=== PATIENT | male | born 1940 | race Caucasian/White ===

== ENCOUNTER 2016-05-03 09:02 | Day surgery (SDC) | payer MEDICARE ==
[~2016-05-03] VITALS: Ht 172.7 cm; Wt 47.9 kg
[~2016-05-03 09:02] MED LIST: ATOR1TAB18 PO; CLOP75TA PO; NITR1SUB2 SL; TEMA30CA PO
[2016-05-03] MEDS ORDERED: SODIUM CHLORID 0.9% 500 ML IV SCH (09:45)
[2016-05-03] MEDS ORDERED: VANCOMYCIN HCL 1000 MG ON-CALL/NS 250 ML IV SCH ×2 (09:45)
[2016-05-03] MEDS ORDERED: LACTATED RINGER'S 1000 ML IV SCH (09:45)
[2016-05-03] MEDS ORDERED: INSULIN HUMAN REGULAR 1,000 UNITS/10 ML VIAL SQ PRN (09:45)
[2016-05-03] MEDS ORDERED: METOPROLOL TARTRATE 25 MG TAB PO PRN (09:45)
[2016-05-03 09:58] VITALS: BP 146/87; PULSE 66; RESP 16; TEMP 97.5; O2SAT 99
[2016-05-03 09:58] LABS: AUTOMATED NEUTROPHIL # 4.6 TH/MM3 (1.8-7.7); BASOPHIL # 0.1 TH/MM3 (0-0.2); BASOPHIL % 0.9 % (0.0-2.0); EOSINOPHIL # 0.2 TH/MM3 (0-0.4); EOSINOPHIL % 2.5 % (0.0-4.0); HEMATOCRIT 43.1 % (39.0-51.0); HEMO FLAGS DIFF FINAL; LYMPH % 32.1 % (9.0-44.0); LYMPHOCYTE # 2.7 TH/MM3 (1.0-4.8); MEAN CELL VOLUME 104.8 FL (80.0-100.0); MEAN CORPUSCULAR HEMOGLOBIN 35.2 PG (27.0-34.0); MEAN CORPUSCULAR HGB CONC 33.6 % (32.0-36.0); NEUT % 55.5 % (16.0-70.0); PLATELET COUNT 205 TH/MM3 (150-450); RED BLOOD COUNT 4.12 MIL/MM3 (4.50-5.90); RED CELL DISTRIBUTION WIDTH 13.7 % (11.6-17.2); WHITE BLOOD COUNT 8.3 TH/MM3 (4.0-11.0)
[2016-05-03 10:08] LABS: APTT (PATIENT) 29.3 SEC (24.3-30.1); INTERNATIONAL NORMALIZED RATIO 1.1 RATIO; PROTHROMBIN TIME - PATIENT 12.4 SEC (9.8-11.6)
[2016-05-03 10:15] LABS: POTASSIUM 4.1 MEQ/L (3.5-5.1)
[2016-05-03] MEDS ORDERED: MIDAZOLAM HCL 2 MG/2 ML VIAL ONE (11:43)
[2016-05-03] MEDS ORDERED: DEXAMETHASONE SOD PHOS 4 MG/ML VIAL ONE (11:44)
[2016-05-03] MEDS ORDERED: FAMOTIDINE 20 MG/2 ML VIAL ONE (11:44)
[2016-05-03] MEDS ORDERED: diphenhydrAMINE HCL 50 MG/ML VIAL ONE (11:44)
[2016-05-03] MEDS ORDERED: LACTATED RINGER'S 1000 ML INJ 1,000 ML IV ONE (12:00)
[2016-05-03] MEDS ORDERED: IOHEXOL 300 MG/ML 50 ML BTL (for RAD DIAG) ONE (12:00)
[2016-05-03] MEDS ORDERED: PROPOFOL 200 MG/20 ML AMP IV ONE (12:00)
[2016-05-03] MEDS ORDERED: HEPARIN SODIUM - SQ 10,000 UNITS/ML VIAL ONE (13:58)
[2016-05-03] MEDS ORDERED: HEPARIN SODIUM - IV 10,000 UNITS/10 ML VIAL ONE (13:58)
[2016-05-03] MEDS ORDERED: PROTAMINE SULFATE 50 MG/5 ML VIAL ONE (13:58)
--- NOTE | 2016-05-03 15:02 | EKG ---
Date Performed: 05/03/2016 Time Performed: 09:53:13 PTAGE: 75 years EKG: Sinus rhythm J-POINT ELEVATION ST ELEVATION DIFFUSELY, CONSISTENT WITH REPOLARIZATION ABNORMALITY OR PERICARDITIS , INJURY PATTERN MOST LIKELY CLINICAL CORRELATION RECOMMENDED BORDERLINE ECG PREVIOUS TRACING : 12/16/2014 10.26 DOCTOR: Pratik Hale Interpretating Date/Time 05/03/2016 15:01:53
[2016-05-03] MEDS ORDERED: BUPIVACAINE/EPINEPHRINE 0.5% PF 30 ML VIAL INFIL ONE (15:18)
[2016-05-03] MEDS ORDERED: IOHEXOL 350 MG/ML 50 ML BTL (for RAD DIAG) OTHER ONE (15:18)
[2016-05-03] MEDS ORDERED: DO NOT ADM ANY ANTICOAGULANT DRUGS XX PRN (18:00)
[2016-05-03] MEDS ORDERED: LABETALOL HCL 100 MG/20 ML VIAL IVP PRN (18:15)
[2016-05-03] MEDS ORDERED: HOLD GLUCOPHAGE, GLUCOPHAGE XR, AND AVANDAMET XX PRN (18:15)
[2016-05-03] MEDS ORDERED: cloNIDine HCL 0.1 MG TAB PO PRN (18:15)
[2016-05-03] MEDS ORDERED: NITROGLYCERIN 0.3 MG SL 100 TABS/BTL SL PRN (18:15)
[2016-05-03] MEDS ORDERED: ACETAMINOPHEN/CODEINE 300 MG/30 MG TAB PO PRN (18:15)
[2016-05-03] MEDS ORDERED: SODIUM NITROPRUSSIDE 50 MG/250 ML D5W IV SCH ×2 (18:15)
[2016-05-03] MEDS ORDERED: SODIUM CHLORIDE 0.9% 1000 ML @ 75 ML/HR IV SCH (18:15)
[2016-05-03] MEDS ORDERED: TEMAZEPAM 15 MG CAP PO PRN (18:15)
[2016-05-03] MEDS ORDERED: ATROPINE SULFATE 1 MG/ML VIAL IV PUSH PRN (18:15)
[2016-05-03] MEDS ORDERED: ENALAPRILAT 1.25 MG/ML VIAL IV PRN (18:15)
[2016-05-03] MEDS ORDERED: SODIUM CHLORIDE 5 ML FLUSH PRN IVF (18:15)
[2016-05-03] MEDS ORDERED: ONDANSETRON HCL 4 MG/2 ML VIAL IV PRN (18:15)
[2016-05-03] MEDS ORDERED: SODIUM CHLOR 0.9% 250 ML IV PRN (18:15)
[2016-05-03] MEDS ORDERED: METOCLOPRAMIDE HCL 10 MG/2 ML VIAL IVS PRN (18:15)
[2016-05-03] MEDS ORDERED: POTASSIUM CHLORIDE 20 MEQ CONTROLLED RELEASE TAB PO PRN (18:15)
[2016-05-03 20:15] VITALS: BP 112/59; PULSE 83; RESP 20; TEMP 98.4; O2SAT 97
[2016-05-03] MEDS ORDERED: ATORVASTATIN 80 MG TAB PO SCH (21:00)
[2016-05-03] MEDS: SODIUM CHLORIDE 5 ML FLUSH BID IVF SCH (21:00)
[2016-05-03 21:30] VITALS: PULSE 88
[2016-05-03 22:00] VITALS: PULSE 75
[2016-05-03 23:00] VITALS: PULSE 74
[2016-05-04] VITALS (14 sets, daily range): BP systolic 116–121; BP diastolic 64–72; PULSE 63–98; RESP 16–21; TEMP 97.2–98.2; O2SAT 96–98
--- NOTE | 2016-05-04 08:07 | MP ---
cc: MAINOR MATOS DATE OF SURGERY May 03, 2016 PREOPERATIVE DIAGNOSIS Critical, potentially limb-threatening left lower extremity ischemia. POSTOPERATIVE DIAGNOSIS Critical, potentially limb-threatening left lower extremity ischemia. PROCEDURE Selective aortofemoral arteriogram with left common iliac percutaneous balloon angioplasty and stent placement. SURGEON Mainor Matos MD FIELD GAUGER PANCHO Machado ANESTHESIA Local MAC. DESCRIPTION OF THE OPERATIVE PROCEDURE With the patient in the supine position, IV sedation was induced. The abdomen, both groins and thighs had been thoroughly prepped with Betadine and draped in a sterile fashion. Following a protocol time-out, the skin and subcutaneous tissue surrounding the proposed left common femoral access site was infiltrated with 0.5% Marcaine with epinephrine. Utilizing ultrasound guidance, an 18-gauge needle was inserted into the left mid-common femoral lumen and a J-wire advanced retrograde under fluoroscopic guidance into the iliac artery. A 5-Wallisian hemostatic sheath was deployed over the J-wire. Diluted contrast was injected through the sheath side-arm in conjunction with digital C-arm fluoroscopic imaging. 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 The external iliac, common femoral, proximal profunda and femoral arteries were patent but diminished in caliber, probably due to diminished in-flow. An Advantage guidewire Quick-Cross catheter combination was negotiated across the iliac occlusion. Intraluminal localization within the aorta was confirmed by contrast injection. The 5-Wallisian hemostatic sheath was exchanged for a 6-Wallisian Brite Tip sheath and the iliac occlusion predilated with a 6 x 60-mm balloon inflated to 8 atmospheres. This was followed by deployment of a 7 x 6-mm balloon expandable stent inflated to 8 atmospheres. Completion angiogram revealed wide patency of the left common iliac with no residual stenosis. On the right side the previously placed right external iliac stent was widely patent. The right common iliac was concentrically calcified and diffusely stenotic throughout but the stenosis did not appear to be flow-limiting. The flow lumen appeared to be at least 4-mm in diameter throughout. A focal high-grade stenosis was present within the right external iliac immediately proximal to the external iliac common femoral junction, but again the stenosis appeared to be non-flow limiting. Finally the right SFA was occluded at its origin. The right profunda was robust and reconstituted the right SFA at the mid-thigh level. On the left side the proximal SFA and profunda were patent. It should be noted that after placement of the 6-Wallisian sheath, the patient received 4000 units of heparin. At the completion of the procedure the heparin was reversed with 20 mg of protamine. The sheath was removed and hemostasis achieved with compression. At the conclusion of the procedure Doppler flow within the left posterior tibial was robust, biphasic. The patient was returned to Recovery in stable condition having tolerated the procedure well. MD BIBIANA Momin/SSB /5:23 PM /7:47 AM
[2016-05-04] MEDS: SODIUM CHLORIDE 5 ML FLUSH BID IVF SCH (08:40)
[2016-05-04] MEDS ORDERED: ASPIRIN EC 81 MG TABEC PO SCH (09:00)
[2016-05-04] MEDS ORDERED: CLOPIDOGREL 75 MG TAB PO SCH ×2 (09:00)
== END 2016-05-04 12:30 | disposition home or self-care (01) ==
LOC: HSDC 09:02 → HCIS 21:30 → HSDC 05-04 12:30
PROVIDERS: ATTEND Surgery Vascular Surgery
DX: I73.9 Peripheral vascular disease, unspecified (principal); Z01.810 Encounter for preprocedural cardiovascular examination; Z01.818 Encounter for other preprocedural examination
CPT/HCPCS: 00880; 37221; 75710; 80048; 85025; 85610; 85730; 86850; 86900; 86901; 93005; C1725; C1769; C1876; C1887; J1100; J1200; J1644; J2250; J2720; J3010; J3370; J7030; J7050; J7120; Q9967